=== PATIENT | male | born 1960 | race Caucasian/White ===

== ENCOUNTER 2017-09-11 13:50 | Emergency (ER) | payer SELFPAY ==
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
[2017-09-11 16:09] LABS: PLATELET COUNT 176 10^3/uL (150-400)
[2017-09-11 16:16] VITALS: TEMP 98.1; O2SAT 95
[2017-09-11 17:38] VITALS: BP 135/95; PULSE 91; RESP 16
== END 2017-09-11 18:21 | disposition home or self-care (01) ==
DX: T40.2X1A Poisoning by other opioids, accidental (unintentional), initial encounter (principal)
CPT/HCPCS: G0480